=== PATIENT | female | born 1995 | race Caucasian/White ===

== ENCOUNTER 2020-01-03 21:28 | Emergency (ER) | payer MEDICAID ==
--- NOTE | 2020-01-03 22:38 | ER Document Report ---
ED Medical Screen (RME) - General Chief Complaint: OB Problem (<20wks) Stated Complaint: ABDOMINAL PAIN-16 WEEKS PREG Time Seen by Provider: 01/03/20 22:31 Mode of Arrival: Ambulatory Information source: Patient Notes: Patient is a 24-year-old female comes emergency room with complaint of having dysfunctional uterine bleeding during . Patient states she is approximately 15 weeks gestation and that she has a past history of being 3 para 0 and spontaneous 2. Last miscarriage was in May 2019 the first miscarriages was in November 2017. Patient is going to the health department for her care. Today around 6 PM tonight she was at a friend's house and she started feeling not herself she went to the bathroom and noticed when she wiped there was a pinkish krish discharge. She attempted to wipe again and it was still there. While later she went home and again had a another attempt at urinating and again there was less this time but still a late 80s krish pink discharge. Patient states that prior to all this happening she did have some pelvic discomfort and it went all the way across. That has seemed to subsided by now. She does state that she had a ultrasound done at the health department did did show a intrauterine . First day of her last menstrual period was approximately August 21. Physical examination: Patient is a well-nourished well-developed 24-year-old female no apparent distress on physical examination night. She does appear slightly anxious. Cardiac: Patient is slightly tachycardic at 103 bpm. Lungs: Auscultation patient's lungs shows clear lungs no rhonchi rales or wheeze heard. Abdomen: Incision position patient has no tenderness to palpation suprapubically or in the quadrants of the abdomen. I have greeted and performed a rapid initial assessment of this patient. A comprehensive ED assessment and evaluation of the patient, analysis of test results and completion of the medical decision making process will be conducted by additional ED providers. Dictation of this chart was performed using voice recognition software; therefore, there may be some unintended grammatical errors. Physical Exam - Vital signs Vitals: Temp Pulse Resp BP Pulse Ox 97.8 F 103 H 18 133/56 H 95 01/03/20 21:43 01/03/20 21:43 01/03/20 21:43 01/03/20 21:43 01/03/20 21:43 Course - Vital Signs Vital signs: Temp Pulse Resp BP Pulse Ox 97.8 F 103 H 18 133/56 H 95 01/03/20 21:43 01/03/20 21:43 01/03/20 21:43 01/03/20 21:43 01/03/20 21:43
--- NOTE | 2020-01-03 23:33 | RADIOLOGY REPORT (SQ) ---
EXAM DESCRIPTION: US LIMITED COMPLETED DATE/TME: 01/03/2020 22:33 CLINICAL HISTORY: 24 years, Female, Dysfunctional uterine bleeding during COMPARISON: None. TECHNIQUE: Emergent Limited OB ultrasound LIMITATIONS: None. FINDINGS: Single, live intrauterine gestation in the breech presentation. The placenta is posterior in location with a grade 1 echotexture and no evidence for previa. heart rate obtained at 131 bpm. Cervical length 3.1 cm. A detailed anatomic assessment was not performed. Current ultrasound age is 17 weeks 0 days. Estimated weight 167 g. Amniotic fluid volume subjectively normal. Ratios: FL to BPD: 56.4 HC to a.c.: 1.26 FL to HC: 15.0 FL to a.c.: 18.9 IMPRESSION: Single, live IUP as above. Continued nonemergent obstetric follow-up is recommended copyright 2011 [employer]- All Rights Reserved
[2020-01-03 23:58] LABS: APPEARANCE,URINE SLIGHTLY-CLOUDY; BILIRUBIN,URINE NEGATIVE (NEGATIVE); COLOR,URINE YELLOW; GLUCOSE, URINE NEGATIVE (NEGATIVE); KETONES,URINE NEGATIVE (NEGATIVE); LEUKOCYTE ESTERASE,URINE LARGE (NEGATIVE); NITRITE,URINE NEGATIVE (NEGATIVE); PROTEIN,URINE 30 mg/dL (NEGATIVE); URINE SPECIFIC GRAVITY 1.002; UROBILINOGEN,URINE NEGATIVE mg/dL (<2.0)
[2020-01-04 00:38] VITALS: BP 130/96
--- NOTE | 2020-01-04 00:42 | ER Document Report ---
ED GI/ - General Chief Complaint: OB Problem (<20wks) Stated Complaint: ABDOMINAL PAIN-16 WEEKS PREG Time Seen by Provider: 01/03/20 22:31 Mode of Arrival: Ambulatory Information source: Patient Notes: Patient is a 24-year-old female comes to the emergency room and was actually triaged by myself with a complaint of being 15 or so weeks gestation having some pelvic discomfort and pain started around 6:30 PM this evening and when she went to have a urination she had a krish pink discharge that she felt was blood. She was at friend's house when this first occurred went home had the same type presentation so she states she looked for a nursing hotline to call but could not find 1 here for the hospital so she decided to come in and have an evaluation done. Patient is 3 para 0 with 2 miscarriages. Last miscarriage was in May 2019 and the first miscarriage was in December 2017. 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 Patient denies any dysuria type presentation at this time. She denies any other medical problems. - HPI Patient complains to provider of: , Vaginal discharge Onset: This evening Timing/Duration: Sudden Quality of pain: Achy Severity at maximum: Mild Severity in ED: Mild Pain Level: 2 - I am doing her chart right now she can get a hold of breath per minute Location: Suprapubic, Pelvis Past Medical History - General Information source: Patient - Social History Smoking Status: Never Smoker Chew tobacco use (# tins/day): No Smoking Education Provided: No Frequency of alcohol use: None Drug Abuse: None Lives with: Family Family History: None, Reviewed & Not Pertinent Review of Systems - Review of Systems Constitutional: No symptoms reported EENT: No symptoms reported Cardiovascular: No symptoms reported Respiratory: No symptoms reported Gastrointestinal: No symptoms reported Female Genitourinary: See HPI, , Vaginal bleeding Musculoskeletal: No symptoms reported Skin: No symptoms reported Hematologic/Lymphatic: No symptoms reported Neurological/Psychological: No symptoms reported -: Yes All other systems reviewed and negative Physical Exam - Vital signs Vitals: Temp Pulse Resp BP Pulse Ox 97.8 F 103 H 18 133/56 H 95 01/03/20 21:43 01/03/20 21:43 01/03/20 21:43 01/03/20 21:43 01/03/20 21:43 Interpretation: Hypertensive, Tachycardic - Notes Notes: PHYSICAL EXAMINATION: GENERAL: Well-appearing, well-nourished and in no acute distress. NECK: Normal range of motion, supple without lymphadenopathy LUNGS: Breath sounds clear to auscultation bilaterally and equal. No wheezes rales or rhonchi. HEART: Tachycardic rate 103 bpm rhythm without murmurs ABDOMEN: Soft, nontender, nondistended abdomen. No guarding, no rebound. No masses appreciated. Examination patient's abdomen and pelvic area was done in triage with a sitting position. Very difficult to ascertain specific discomfort however she had some slight discomfort suprapubically to palpation. The abdomen was benign at this time. Bowel sounds were present all 4 quads. Female : deferred PSYCH: Normal mood, normal affect. SKIN: Warm, Dry, normal turgor, no rashes or lesions noted. Course - Re-evaluation Re-evalutation: 01/04/20 00:47 Patient has been here greater than 5 hours and was wanting the results of her ultrasound. I had originally seen patient in the triage and did not get to take her to a room and do a good physical abdominal exam. I offered when she came up to the front to get her results to try to take her back to another room but patient did not want any further investigation she just wanted to find out what the results of her ultrasound were. Given that the ultrasound was fairly normal showing a intrauterine with a heart rate of 138 bpm even though is in breech position at this time which is not a major concern and she also had a urinary tract infection I felt it was reasonable to go ahead and treat her with the antibiotics. Patient seems satisfied with this. She had originally refused the blood work and I had a long talk with her about this that blood work sometimes can tell us more results than just an ultrasound so when she comes to the emergency room if she is going to refuse something to please let us know before the results of other testing is back. - Vital Signs Vital signs: Temp Pulse Resp BP Pulse Ox 97.8 F 103 H 18 133/56 H 95 01/03/20 21:43 01/03/20 21:43 01/03/20 21:43 01/03/20 21:43 01/03/20 21:43 - Laboratory Laboratory results interpreted by me: 01/03/20 21:40 Urine Protein 30 H Urine Blood MODERATE H Ur Leukocyte Esterase LARGE H Discharge - Discharge Clinical Impression: Dysfunctional uterine bleeding Qualifiers: Weeks of gestation: 17 weeks Qualified Code(s): Z3A.17 - 17 weeks gestation of Condition: Stable Disposition: HOME, SELF-CARE Instructions: Bleeding During Early ([facility]), Urinary Tract Infection ([facility]) Additional Instructions: As we discussed right now your ultrasound shows a positive intrauterine in good position at this time. Heart rate is 138 beats a minute and it is approximately 17 weeks. He also have a urinary tract infection with a large amount of leukocyte esterase in it. At this time we will treat you for the urinary tract infection. We will place you on some Keflex which is safe during . Also as we discussed you need to contact the SHIPPING AND RECEIVING COORDINATOR on Sunday and follow-up relatively soon. You are a high risk since you have had 2 miscarriages with no live births. And this is concerning. Should you have any concerns or problems over the rest of the weekend you can was return to ER for reevaluation. Prescriptions: Cephalexin Monohydrate [Keflex 500 mg Capsule] 500 mg PO BID 5 Days #14 capsule Referrals: CHRISTIE QURESHI MD [ACTIVE STAFF] - Follow up as needed
== END 2020-01-04 00:40 | disposition home or self-care (01) ==
LOC: ER 21:28
DX: O26.892 Other specified pregnancy related conditions, second trimester (principal); N93.8 Other specified abnormal uterine and vaginal bleeding; R10.2 Pelvic and perineal pain; Z3A.17 17 weeks gestation of pregnancy; Z87.59 Personal history of other complications of pregnancy, childbirth and the puerperium
CPT/HCPCS: 76815; 81001; 87086; 99284

== ENCOUNTER 2020-02-23 07:29 | Outpatient (CLI) | payer MEDICAID ==
--- NOTE | 2020-02-23 08:30 | L&D Progress Notes ---
PROGRESS NOTES Datetime Report Generated by CPN: 02/23/2020 08:29 PROGRESS NOTE Comment: pt had sex yesterday and started spotting when voiding, light pink, showed me pictures, cx long. closed presenting part high, no blood on gloves, abd soft, vs stable, no UTI symptoms will dc home, go to office in am, pelvic rest rev S_S to report LAST VAGINAL EXAM-NURSING Nursing Exam Dilitation: closed SIGNATURE SIGNATURE: [id number] Assignment: Yancy Long MD Signature: with User ID: [email or web address] : with User ID: [email or web address]
== END 2020-02-23 08:29 | disposition home or self-care (01) ==
LOC: LC 07:29
PROVIDERS: ATTEND Obstetrics & Gynecology
DX: O26.852 Spotting complicating pregnancy, second trimester (principal); Z3A.24 24 weeks gestation of pregnancy

== ENCOUNTER 2020-05-26 17:14 | Outpatient (CLI) | payer OTHER, MEDICAID ==
[2020-05-26 18:27] LABS: APPEARANCE,URINE SLIGHTLY-CLOUDY; BILIRUBIN,URINE NEGATIVE (NEGATIVE); COLOR,URINE YELLOW; GLUCOSE, URINE NEGATIVE (NEGATIVE); KETONES,URINE NEGATIVE (NEGATIVE); LEUKOCYTE ESTERASE,URINE TRACE (NEGATIVE); NITRITE,URINE NEGATIVE (NEGATIVE); PROTEIN,URINE NEGATIVE (NEGATIVE); URINE SPECIFIC GRAVITY 1.011; UROBILINOGEN,URINE NEGATIVE mg/dL (<2.0)
[2020-05-26 18:38] LABS: URINE AMPHETAMINES SCREEN NEGATIVE; URINE BARBITURATES SCREEN NEGATIVE; URINE BENZODIAZEPINES SCREEN NEGATIVE; URINE COCAINE SCREEN NEGATIVE; URINE MARIJUANA (THC) SCREEN NEGATIVE; URINE METHADONE SCREEN NEGATIVE; URINE PHENCYCLIDINE SCREEN NEGATIVE
== END 2020-05-26 18:49 | disposition home or self-care (01) ==
LOC: LC 17:14
PROVIDERS: ATTEND Obstetrics & Gynecology
DX: O47.1 False labor at or after 37 completed weeks of gestation (principal); Z3A.37 37 weeks gestation of pregnancy
CPT/HCPCS: 80307; 81005; 84112

== ENCOUNTER 2020-06-10 11:22 | Outpatient (CLI) | payer OTHER, MEDICAID ==
[2020-06-10 11:57] LABS: APPEARANCE,URINE HAZY; BILIRUBIN,URINE NEGATIVE (NEGATIVE); COLOR,URINE YELLOW; GLUCOSE, URINE NEGATIVE (NEGATIVE); KETONES,URINE NEGATIVE (NEGATIVE); LEUKOCYTE ESTERASE,URINE TRACE (NEGATIVE); NITRITE,URINE NEGATIVE (NEGATIVE); PROTEIN,URINE NEGATIVE (NEGATIVE); URINE SPECIFIC GRAVITY 1.021; UROBILINOGEN,URINE NEGATIVE mg/dL (<2.0)
--- NOTE | 2020-06-10 12:17 | Non Stress Test Report ---
Non Stress Test Datetime Report Generated by CPN: 06/10/2020 12:17 DEMOGRAPHIC Test Number: 1 EGA NST: 39.3 INDICATION Indication for Study (NST) Other: LC VITAL SIGNS Temperature - NST: 98.4 Pulse - NST: 109 RESP - NST: 18 NBPSYS NST: 112 NBPDIA NST: 64 MONITORING Monitor Explained: Monitor Explained; Test Explained; Patient Verbalized Understanding Time on Monitor: 06/10/2020 11:31 Time off Monitor: 06/10/2020 12:06 NST Duration: 35 NST INTERVENTIONS NST Interventions: PO Hydration; Reposition Patient Physician Notified NST: KClaudy Anthony, CNM BABY A: [id number] BABY A Movement : Present Contraction Frequency : Irritability FHR Baseline : 135 Accelerations : 15X15 Decelerations : None Variability : Moderate 6-25bpm NST Review: Meets Criteria for Reactive NST NST Review and Verified By : Priscilla, RN NST Results: Reactive NST REPORT Report Trigger: Send Report
[2020-06-10 12:31] LABS: URINE AMPHETAMINES SCREEN NEGATIVE; URINE BARBITURATES SCREEN NEGATIVE; URINE BENZODIAZEPINES SCREEN NEGATIVE; URINE COCAINE SCREEN NEGATIVE; URINE MARIJUANA (THC) SCREEN NEGATIVE; URINE METHADONE SCREEN NEGATIVE; URINE PHENCYCLIDINE SCREEN NEGATIVE
== END 2020-06-10 12:16 | disposition home or self-care (01) ==
LOC: LC 11:22
PROVIDERS: ATTEND Obstetrics & Gynecology
DX: O36.8130 Decreased fetal movements, third trimester, not applicable or unspecified (principal); Z3A.39 39 weeks gestation of pregnancy
CPT/HCPCS: 59025; 80307; 81005

== ENCOUNTER 2020-06-16 21:44 | Inpatient (IN) | payer OTHER, MEDICAID ==
[2020-06-16] MEDS ORDERED: RINGERS SOLUTION,LACTATED 300 ML IV ONE (22:30)
[2020-06-16] MEDS ORDERED: OXYTOCIN/0.9 % SODIUM CHLORIDE 30 UNIT/500 ML RTUINJ IV PRN (22:30)
[2020-06-16] MEDS ORDERED: RINGERS SOLUTION,LACTATED 1,000 ML IV PRN (22:30)
[2020-06-16] MEDS ORDERED: ZOLPIDEM TARTRATE 5 MG TABLET PO PRN (22:30)
[2020-06-16] MEDS ORDERED: DINOPROSTONE 10 MG VAGINAL INSERT.SR PV ONE (22:30)
[2020-06-16] MEDS ORDERED: MAG HYDROX/AL HYDROX/SIMETH SUSP 30 ML UDCUP PO PRN (22:30)
[2020-06-16] MEDS ORDERED: ACETAMINOPHEN 325 MG TABLET PO PRN (22:30)
[2020-06-16 22:44] LABS: APPEARANCE,URINE CLOUDY; BILIRUBIN,URINE NEGATIVE (NEGATIVE); COLOR,URINE YELLOW; GLUCOSE, URINE NEGATIVE (NEGATIVE); KETONES,URINE NEGATIVE (NEGATIVE); LEUKOCYTE ESTERASE,URINE TRACE (NEGATIVE); NITRITE,URINE NEGATIVE (NEGATIVE); PROTEIN,URINE 30 mg/dL (NEGATIVE); URINE SPECIFIC GRAVITY 1.026; UROBILINOGEN,URINE NEGATIVE mg/dL (<2.0)
[2020-06-16] MEDS ORDERED: HYDROXYZINE PAMOATE 50 MG CAPSULE ONE (22:54)
[2020-06-16] MEDS ORDERED: DINOPROSTONE 10 MG VAGINAL INSERT.SR ONE (22:55)
[2020-06-16] MEDS ORDERED: ZOLPIDEM TARTRATE 5 MG TABLET ONE (22:55)
[2020-06-16 22:59] LABS: HEMOGLOBIN 12.2 g/dL (12.0-15.5); MEAN CORPUSCULAR HEMOGLOBIN 28.6 pg (27.0-33.4); MEAN CORPUSCULAR VOLUME 84 fl (80-97); PLATELET COUNT 248 10^3/uL (150-450); RED BLOOD COUNT 4.29 10^6/uL (3.72-5.28); RED CELL DISTRIBUTION WIDTH 14.6 % (11.5-14.0); WHITE BLOOD COUNT 14.2 10^3/uL (4.0-10.5)
[2020-06-16 23:15] LABS: URINE AMPHETAMINES SCREEN NEGATIVE; URINE BARBITURATES SCREEN NEGATIVE; URINE BENZODIAZEPINES SCREEN NEGATIVE; URINE COCAINE SCREEN NEGATIVE; URINE MARIJUANA (THC) SCREEN NEGATIVE; URINE METHADONE SCREEN NEGATIVE; URINE PHENCYCLIDINE SCREEN NEGATIVE
--- NOTE | 2020-06-17 06:35 | Admission Physical ---
Datetime Report Generated by CPN: 06/17/2020 06:34 CURRENT ADMISSION Hx Assessment: The History has been Reviewed and is Current Chief Complaint: Scheduled Induction of Labor Chief Complaint Other: at 40.3 wks EGA for IOL due to post dates and large for gestational age on US at 8lb 14 oz Indication for Induction: Post Dates Admit Impression : Term, Intrauterine Admit Plan: Admit to Unit; Initiate Labor Protocol; Initiate Labor Induction Protocol ALLERGIES Medication Allergies: No Medication Allergies: No Known Allergies (06/10/2020) Latex: No Latex Allergies Food Allergies: no Environmental Allergies: no OBSTETRICAL HISTORY EDC: 06/14/2020 00:00 : 3 Para: 0 Term: 0 : 0 SAB: 2 IAB: 0 Ectopic: 0 Livin Cesareans: 0 VBACs: 0 Multiple Births: 0 Gestational Diabetes: No Rh Sensitization: No Incompetent Cervix: No HORTENCIA: No Infertility: No ART Treatment: No Uterine Anomaly: No IUGR: No Hx Previous C/S: No Macrosomia: No Hx Loss/Stillborn: No PIH: No Hx : No Placenta Previa/Abruption: No Depression/PP Depression: Yes PTL/PROM: No Post Hemorrhage: No Current Procedures: Ultrasound Obstetrical History Comments: SABx2 EFW 4032 on 06/15 SEE RECORDS Alcohol: No Marijuana : Yes Marijuana Frequency: Occasional Last Used: 09/17/2019 00:00 Previous Treatment: None Marijuana Comments: stopped with Cocaine: No Other Illicit Drugs: No Cigarettes: Former Smoker. 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: No Heart Disease: Yes Hosp/Surgery: No Autoimmune Disorder: No Anesthetic Complications: No Kidney Disease: Yes Abnormal Pap Smear: No Neuro/Epilepsy: No Psychiatric Disorders: No Other Medical Diseases: No Hepatitis/Liver Disease: No Significant Family History: No Varicosities/Phlebitis: No Trauma/Violence : No Thyroid Dysfunction: No Medical History Comments: Afib in 2016 yearly evaluation/UTI during this /depression and anxiety/bulimia age 16 INFECTIOUS HISTORY Gonorrhea: No Genital Herpes: No Chlamydia: No Tuberculosis: No Syphilis: No Hepatitis: No HIV/AIDS Exposure: No Rash or Viral Illness: No HPV: No PHYSICAL EXAM General: Normal HEENT: Normal Neurologic: Normal Thyroid: Normal Heart: Normal Lungs: Normal Breast: Normal Back: Normal Abdomen: Normal Genitourinary Exam: Normal Extremities: Normal DTRs: Normal Pelvic Type: Adequate Vital Signs: Reviewed; Within Normal Limits VAGINAL EXAM Dilatation: 1 Effacement: 50 Station: -2 Contraction Comments: no regular contractions MEMBRANES Pooling: Negative Membranes: Intact FETUS A EGA: 40.3 Monitoring: External US FHR- Baseline: 125 Variability: Moderate 6-25bpm Accelerations: 15X15 Decelerations: None FHR Category: Category I Presentation: Breech Admit Comment: at 40.3 wks EGA admitted for IOL due to post date and large for Gestational age. Last US showed 8 lb 14 oz -admit to LDR -NPO and IVFs: LR at 125 cc/hr after 1 liter bolus -CEFM and TOco -cervix /2 . Cervidil placed at 2230 -GBS negative -anticipate PLANS FOR LABOR AND DELIVERY Labor and Delivery: Other, Specify Pain Management: Epidural Feeding Preference: Breast Benefit of Breast Feed Discussed: Yes Circumcision: No INFORMED CONSENT Informed Consent Obtained: Vaginal Delivery; Section Delivery; Vacuum/Forceps Assist; Risks, Benefits and Alternatives Discussed Signature: with User ID: [email or web address] : with User ID: [email or web address]
[2020-06-17] MEDS ORDERED: MISOPROSTOL 0.2 MG TABLET ONE (12:54)
[2020-06-17] MEDS ORDERED: LIDOCAINE 1% INJ-PF (10 MG/ML) 30 ML SDV ONE (12:54)
[2020-06-17] MEDS ORDERED: OXYTOCIN 10 UNIT/ML VIAL ONE (12:54)
[2020-06-17] MEDS ORDERED: OXYTOCIN/0.9 % SODIUM CHLORIDE 30 UNIT/500 ML RTUINJ ONE (12:54)
[2020-06-17] MEDS ORDERED: OXYTOCIN/0.9 % SODIUM CHLORIDE 30 UNIT/500 ML RTUINJ IV PRN (12:57)
[2020-06-17] MEDS ORDERED: ZOLPIDEM TARTRATE 5 MG TABLET PO PRN (21:06)
[2020-06-17] MEDS ORDERED: DINOPROSTONE 10 MG VAGINAL INSERT.SR PV ONE (21:06)
[2020-06-17] MEDS ORDERED: DINOPROSTONE 10 MG VAGINAL INSERT.SR ONE (21:10)
[2020-06-17] MEDS ORDERED: HYDROXYZINE PAMOATE 50 MG CAPSULE PO ONE (21:43)
[2020-06-17] MEDS ORDERED: HYDROXYZINE PAMOATE 50 MG CAPSULE ONE (22:40)
[2020-06-17] MEDS ORDERED: ZOLPIDEM TARTRATE 5 MG TABLET ONE (22:41)
[2020-06-18] MEDS ORDERED: OXYTOCIN/0.9 % SODIUM CHLORIDE 30 UNIT/500 ML RTUINJ IV PRN ×2 (08:45→20:58)
[2020-06-18] MEDS ORDERED: EPHEDRINE SULFATE INJ 50 MG/1 ML AMPULE ONE (12:44)
[2020-06-18] MEDS ORDERED: ROPIVACAINE HCL 0.2% INJ/PF (2 MG/ML) 20 ML SDV ONE ×2 (12:45→19:52)
[2020-06-18] MEDS ORDERED: FENTANYL/BUPIVACAINE/NS/PF 300 MCG/150 ML RTUINJ EPI ONE (12:45)
[2020-06-18] MEDS ORDERED: ACETAMINOPHEN 325 MG TABLET ONE (19:43)
[2020-06-18] MEDS ORDERED: AMPICILLIN SOD INJ 2 GM VIAL ONE (19:43)
[2020-06-18] MEDS ORDERED: AMPICILLIN SODIUM 2 GM in NORMAL SALINE 100 ML IV ONE (19:46)
[2020-06-18] MEDS ORDERED: CITRIC ACID/SODIUM CITRATE ORAL SOLN 15 ML UDCUP ONE (19:58)
[2020-06-18] MEDS ORDERED: ROPIVACAINE HCL 0.5% INJ/PF (5 MG/1 ML) 30 ML SDV ONE (20:05)
[2020-06-18] MEDS ORDERED: OXYTOCIN 10 UNIT/ML VIAL ONE (20:12)
[2020-06-18] MEDS ORDERED: MIDAZOLAM 2 MG/2 ML INJ ONE (20:12)
[2020-06-18] MEDS ORDERED: ONDANSETRON HCL INJ/PF 4 MG/2 ML SDV ONE (20:12)
[2020-06-18] MEDS ORDERED: CHLOROPROCAINE HCL INJ/PF 3% (30 MG/1 ML) 20 ML VIAL ONE (20:27)
[2020-06-18] MEDS ORDERED: MORPHINE SULFATE 10 MG/ML INJ IM PRN (20:58)
[2020-06-18] MEDS ORDERED: DIPH/PERTUSS(ACELL)/TETANUS VAC/PF 0.5 ML SYR (>=10YO) IM PRN (20:58)
[2020-06-18] MEDS ORDERED: SIMETHICONE 80 MG TAB.CHEW PO PRN (20:58)
[2020-06-18] MEDS ORDERED: ACETAMINOPHEN 325 MG TABLET PO PRN (20:58)
[2020-06-18] MEDS ORDERED: ACETAMINOPHEN 1,000 MG/100 ML RTUPB IV PRN (20:58)
[2020-06-18] MEDS ORDERED: MEASLES,MUMPS&RUBELLA VACC/PF 0.5 ML VIAL SUBCUT PRN (20:58)
[2020-06-18] MEDS ORDERED: PROMETHAZINE HCL INJ 25 MG/1 ML VIAL IV PRN (20:58)
[2020-06-18] MEDS ORDERED: RINGERS SOLUTION,LACTATED 1,000 ML IV PRN (20:58)
--- NOTE | 2020-06-18 21:03 | Operative Report ---
Operative Report DATE OF SURGERY: 06/18/20 PREOPERATIVE DIAGNOSIS: IUP at term suspected macrosomia failure of induction a nd tachycardia POSTOPERATIVE DIAGNOSIS: Same plus chorioamnionitis OPERATION: Primary low transverse section delivery of viable infant SURGEON: RITA HANNAH ANESTHESIA: Epidural TISSUE REMOVED OR ALTERED: Placenta ESTIMATED BLOOD LOSS: Approximately 900 cc PROCEDURE: The patient was taken to the operating room where spinal anesthesia was obtained and found to be adequate. She was then prepped and draped in the normal sterile fashion and placed in the dorsal supine position with a leftward tilt. A Pfannenstiel skin incision was then made and carried through to the underlying layers of the fascia with the scalpel. The fascia was incised in the midline and the incision extended laterally with the Reyna scissors. The superior aspect of the fascial incision was then grasped with Karin clamps elevated and the underlying rectus muscles dissected off bluntly. Attention was then turned to the inferior aspect of the fascial incision which in a similar fashion was grasped, tented up with Francine clamps, and the rectus muscles dissected off bluntly. The rectus muscles were then in the midline and the peritoneum at the amount identified and entered bluntly. The peritoneal incision was then extended superiorly and inferiorly with good visualization of the bladder. [The bladder blade was inserted and the vesicouterine peritoneum identified grasped with Greek pickups and entered sharply with the Metzenbaum scissors. His incision was then extended laterally with the Metzenbaum scissors and a bladder flap created digitally. The bladder blade was then reinserted and the lower uterine segment incised in a transverse fashion with the scalpel. The uterine incision was then extended bluntly. The bladder blade was removed and the 's head was delivered from cephalic presentation atraumatically. The nose and mouth were suctioned and the cord doubly clamped and cut. And the infant was handed off to waiting pediatricians. The placenta was then delivered manully and the uterus exteriorized and cleared of all clots and debris. The uterine incision was then repaired with 1-0 Vicryl in a running locked fashion. A second layer of the same suture was used to obtain hemostasis via imbrication of the initial layer. The uterus was returned to the patient's abdomen. The gutters were cleared of all clots and debris. All operative sites were noted to be hemostatic. The fascia was reapproximated with 0 Vicryl in a running fashion from each lateral edge to the midline. The patient tolerated the procedure well. Sponge lap needle and instrument counts are correct -2. 2 g of Ancef were given prior to skin incision. The patient was taken to the recovery area awake and in stable condition.
[2020-06-18] MEDS ORDERED: ACETAMINOPHEN 1,000 MG/100 ML RTUPB IV ONE (22:23)
[2020-06-18] MEDS ORDERED: OXYTOCIN/0.9 % SODIUM CHLORIDE 30 UNIT/500 ML RTUINJ ONE (22:23)
[2020-06-18] MEDS ORDERED: KETOROLAC TROMETHAMINE INJ/PF 30 MG/1 ML SDV ONE (22:23)
[2020-06-18] MEDS: KETOROLAC TROMETHAMINE INJ/PF 30 MG/1 ML SDV IV SCH (22:30)
[2020-06-18] MEDS ORDERED: MORPHINE SULFATE 10 MG/ML INJ ONE (23:39)
[2020-06-19] MEDS: IBUPROFEN 800 MG TABLET PO SCH ×4 (00:33→21:02)
[2020-06-19] MEDS: AMPICILLIN SODIUM 1 GM in NORMAL SALINE 50 ML IV SCH ×6 (04:17→20:02)
[2020-06-19] MEDS: KETOROLAC TROMETHAMINE INJ/PF 30 MG/1 ML SDV IV SCH ×2 (05:21→15:54)
[2020-06-19 05:53] LABS: HEMATOCRIT 30.8 % (36.0-47.0); HEMOGLOBIN 10.3 g/dL (12.0-15.5); MEAN CORPUSCULAR HEMOGLOBIN 28.3 pg (27.0-33.4); MEAN CORPUSCULAR HGB CONC 33.3 g/dL (32.0-36.0); MEAN CORPUSCULAR VOLUME 85 fl (80-97); PLATELET COUNT 187 10^3/uL (150-450); RED BLOOD COUNT 3.63 10^6/uL (3.72-5.28); RED CELL DISTRIBUTION WIDTH 14.6 % (11.5-14.0); WHITE BLOOD COUNT 13.6 10^3/uL (4.0-10.5)
[2020-06-19] MEDS: OXYCODONE-ACETAMINOPHEN 5-325 MG TABLET PO PRN ×3 (08:10→21:02)
[2020-06-19] MEDS: DOCUSATE SODIUM 100 MG CAPSULE PO SCH ×2 (09:37→17:59)
[2020-06-19] MEDS: PRENATAL VITAMIN W DHA CAPSULE PO SCH (09:37)
--- NOTE | 2020-06-19 11:10 | PDOC PROGRESS REPORT ---
Subjective-OB Progress Note for:: 06/19/20 Subjective: reports bleeding slowing, pain controlled with current meds. denies needs Physical Exam (OB) Vital Signs: Temp Pulse Resp BP Pulse Ox 97.3 F 105 H 18 108/62 100 06/19/20 08:38 06/19/20 08:16 06/19/20 08:16 06/19/20 08:16 06/19/20 08:16 Intake & Output 06/18/20 06/19/20 06/20/20 06:59 06:59 06:59 Intake Total 1350 400 Output Total 400 1175 Balance 950 -195 - Dressing Removed: Yes - pressure dsg removed Incision: Open Closure Type: Surgical Glue - Maternal Morbidity 59. Maternal Morbidity (serious complications experinced by the mother associated with labor and delivery: None of the above - Abdomen Description: Tender, Soft Hernia Present: No Fundal Description: Firm, Midline Fundal Height: u/u - u/2 - Abdominal Distension: No distension - Extremities Lower extremities: Kristian's sign - neg Calf: Normal, Nontender Objective-Diagnostic Laboratory: 06/19/20 05:05 06/19/20 05:05 WBC 13.6 H RBC 3.63 L Hgb 10.3 L Hct 30.8 L MCV 85 MCH 28.3 MCHC 33.3 RDW 14.6 H Plt Count 187 Assessment and Plan(PN) - Assessment and Plan (1) COVID-19 Is this a current diagnosis for this admission?: Yes (2) Encounter for induction of labor Is this a current diagnosis for this admission?: Yes (3) S/P primary low transverse Is this a current diagnosis for this admission?: Yes - Time Spent with Patient Time with patient: Less than 15 minutes - Disposition Anticipated Discharge Disposition: Home, Self Care Anticipated Discharge Timeframe: within 48 hours
[2020-06-19] MEDS ORDERED: IBUPROFEN 800 MG TABLET ONE (19:44)
[2020-06-20] MEDS: AMPICILLIN SODIUM 1 GM in NORMAL SALINE 50 ML IV SCH ×3 (00:06→07:44)
[2020-06-20] MEDS: IBUPROFEN 800 MG TABLET PO SCH ×2 (00:07→05:10)
[2020-06-20] MEDS: OXYCODONE-ACETAMINOPHEN 5-325 MG TABLET PO PRN ×2 (05:10→09:46)
[2020-06-20 08:26] VITALS: BP 109/57
--- NOTE | 2020-06-20 09:34 | PDOC DISCHARGE SUMMARY ---
Impression - Admit/DC Date/PCP Admission Date/Primary Care Provider: 06/16/20 21:44 ARELIS NIETO MD Discharge Date: 06/20/20 - Discharge Diagnosis (1) COVID-19 Is this a current diagnosis for this admission?: Yes (2) Encounter for induction of labor Is this a current diagnosis for this admission?: Yes (3) S/P primary low transverse Is this a current diagnosis for this admission?: Yes - Additional Information Discharge Diet: Regular Discharge Activity: Balance Activity w/Rest, No Lifting Over 10 Pounds, No Lifting/Push/Pulling, Pelvic Rest, No tub bath Referrals: ARELIS NIETO MD [Primary Care Provider] - Prescriptions: Ibuprofen [Motrin 800 mg Tablet] 800 mg PO Q8HP PRN #60 tablet PRN Reason: Oxycodone HCl/Acetaminophen [Percocet 5-325 mg Tablet] 1 tab PO Q4HP PRN #20 tablet PRN Reason: Home Medications: Pnv No.95/Ferrous Fum/Folic AC [ Caplet] 1 tab PO DAILY 02/23/20 Ibuprofen [Motrin 800 mg Tablet] 800 mg PO Q8HP PRN #60 tablet 06/20/20 Oxycodone HCl/Acetaminophen [Percocet 5-325 mg Tablet] 1 tab PO Q4HP PRN #20 tablet 06/20/20 Hospital Course 59. Maternal Morbidity (serious complications experinced by the mother associated with labor and delivery: None of the above Results Laboratory Results: WBC 13.6 10^3/uL (4.0-10.5) H 06/19/20 05:05 RBC 3.63 10^6/uL (3.72-5.28) L 06/19/20 05:05 Hgb 10.3 g/dL (12.0-15.5) L 06/19/20 05:05 Hct 30.8 % (36.0-47.0) L 06/19/20 05:05 MCV 85 fl (80-97) 06/19/20 05:05 MCH 28.3 pg (27.0-33.4) 06/19/20 05:05 MCHC 33.3 g/dL (32.0-36.0) 06/19/20 05:05 RDW 14.6 % (11.5-14.0) H 06/19/20 05:05 Plt Count 187 10^3/uL (150-450) 06/19/20 05:05 Urine Color YELLOW 06/16/20 22:20 Urine Appearance CLOUDY 06/16/20 22:20 Urine pH 6.0 (5.0-9.0) 06/16/20 22:20 Ur Specific [place] 1.026 06/16/20 22:20 Urine Protein 30 mg/dL (NEGATIVE) H 06/16/20 22:20 Urine Glucose (UA) NEGATIVE mg/dL (NEGATIVE) 06/16/20 22:20 Urine Ketones NEGATIVE mg/dL (NEGATIVE) 06/16/20 22:20 Urine Blood NEGATIVE (NEGATIVE) 06/16/20 22:20 Urine Nitrite NEGATIVE (NEGATIVE) 06/16/20 22:20 Urine Bilirubin NEGATIVE (NEGATIVE) 06/16/20 22:20 Urine Urobilinogen NEGATIVE mg/dL (<2.0) 06/16/20 22:20 Ur Leukocyte Esterase TRACE (NEGATIVE) H 06/16/20 22:20 Urine Ascorbic Acid NEGATIVE (NEGATIVE) 06/16/20 22:20 Urine Opiates Screen NEGATIVE 06/16/20 22:20 Urine Methadone Screen NEGATIVE 06/16/20 22:20 Ur Barbiturates Screen NEGATIVE 06/16/20 22:20 Ur Phencyclidine Scrn NEGATIVE 06/16/20 22:20 Ur Amphetamines Screen NEGATIVE 06/16/20 22:20 U Benzodiazepines Scrn NEGATIVE 06/16/20 22:20 Urine Cocaine Screen NEGATIVE 06/16/20 22:20 U Marijuana (THC) Screen NEGATIVE 06/16/20 22:20 RPR NONREACTIVE (NONREACTIVE) 06/16/20 22:48 Influenza A (RT-PCR) NEGATIVE (NEGATIVE) 06/18/20 21:40 Influenza B (RT-PCR) NEGATIVE (NEGATIVE) 06/18/20 21:40 RSV (RT-PCR) NEGATIVE (NEGATIVE) 06/18/20 21:40 SARS-CoV-2 Rap RNA(RT-PCR) POSITIVE (NEGATIVE) H 06/18/20 21:40 Blood Type A POSITIVE 06/16/20 22:48 Antibody Screen NEGATIVE 06/16/20 22:48 Plan Plan of Treatment: follow up in 2 weeks at [facility] for incision check
[2020-06-20] MEDS: DOCUSATE SODIUM 100 MG CAPSULE PO SCH (09:45)
[2020-06-20] MEDS: PRENATAL VITAMIN W DHA CAPSULE PO SCH (10:10)
== END 2020-06-20 12:00 | disposition home or self-care (01) | DRG 786 ==
LOC: LR 21:44 → 2N 06-19 01:13
PROVIDERS: ADMIT Obstetrics & Gynecology; ATTEND Obstetrics & Gynecology
PROC: 10D00Z1 Extraction of Products of Conception, Low, Open Approach (ICD-10-PCS; principal; 2020-06-16)
DX: O98.52 Other viral diseases complicating childbirth (principal); U07.1 COVID-19; O48.0 Post-term pregnancy; Z3A.40 40 weeks gestation of pregnancy; O36.63X0 Maternal care for excessive fetal growth, third trimester, not applicable or unspecified; O32.1XX0 Maternal care for breech presentation, not applicable or unspecified; O76 Abnormality in fetal heart rate and rhythm complicating labor and delivery; Z37.0 Single live birth
CPT/HCPCS: 1967; 1968; 36415; 80307; 81005; 85027; 86592; 86850; 86900; 86901; 88307; 94760; 94799; 0241U; C9803; J0131; J0290; J1885; J2250; J2270; J2400; J2405; J2590; J2795; J3010; J3490